=== PATIENT | male | born 1995 | race Caucasian/White ===

== ENCOUNTER 2022-01-10 20:39 | Observation (INO) ==
[2022-01-10] MEDS ORDERED: *HR* Atropine Sulfate 1 MG/10 ML SYRINGE ONE (21:14)
[2022-01-10] MEDS ORDERED: 0.9 % Sodium Chloride 1,000 ML ONE (21:16)
[2022-01-10] MEDS ORDERED: *HR* Atropine Sulfate 1 MG/10 ML SYRINGE IV PRN (21:17)
[2022-01-10] MEDS ORDERED: Iopamidol - 370 500 ML MLS IVP ONE (21:23)
[2022-01-10 21:38] LABS: Basophils # 0.1 K/mcL (0.0-0.2); Basophils % 0.6 %; Eosinophils # 0.1 K/mcL (0.0-0.6); Eosinophils % 0.9 %; Hematocrit 42.5 % (37.5-50.1); Immature Granulocytes % 0.2 % (0-4); Lymphocytes # 3.3 K/mcL (0.6-4.6); Lymphocytes % 36.4 %; Mean Corpuscular HGB Conc 32.9 g/dL (31.6-35.5); Mean Corpuscular Hemoglobin 27.9 pg (28.0-33.3); Mean Corpuscular Volume 84.8 fL (83.0-100.0); Mean Platelet Volume 10.7 fL (9.4-12.4); Monocytes # 0.5 K/mcL (0.0-1.3); Monocytes % 5.6 %; Platelet Count 262 K/mcL (140-400); Red Blood Count 5.01 M/mcL (4.19-5.50); Red Cell Distribution Width 12.6 % (11.5-14.5); Segmented Neutrophils % 56.3 %; White Blood Count 8.9 K/mcL (4.3-11.1)
[2022-01-10 21:58] LABS: BUN/Creatinine Ratio 15 (6-26); Blood Urea Nitrogen 13 mg/dL (6-20); Calcium 10.1 mg/dL (8.6-10.3); Carbon Dioxide 27 mEq/L (23-29); Chloride 102 mEq/L (98-107); Glucose 132 mg/dL (70-105); Magnesium 1.9 mg/dL (1.6-2.6); Osmolality,Calculated 288 (280-300); Potassium 3.7 mEq/L (3.5-5.1); Sodium 138 mEq/L (136-145); Troponin I < 0.03 ng/mL (< 0.04)
[2022-01-11] MEDS ORDERED: Naloxone 0.4 MG/ML INJ IVP PRN (00:36)
[2022-01-11] MEDS ORDERED: Ondansetron 4 MG/2 ML VIAL IVP PRN (00:36)
[2022-01-11] MEDS ORDERED: Acetaminophen 325 MG TABLET PO PRN (00:36)
[2022-01-11 00:45] LABS: Amphetamine Screen,Urine Negative ng/mL (Cutoff=1000); Barbiturate Screen,Urine Negative ng/mL (Cutoff=200); Benzodiazepines Screen,Urine Negative ng/mL (Cutoff=200); Cannabinoid Screen,Urine Negative ng/mL (Cutoff = 50); Cocaine Screen,Urine Negative ng/mL (Cutoff= 300); Opiate Screen,Urine Negative ng/mL (Cutoff=300); Phencyclidine Screen,Urine Negative ng/mL (Cutoff=25)
[2022-01-11 15:50] VITALS: BP 120/80; PULSE 100; TEMP 98.1; O2SAT 98
== END 2022-01-11 17:05 | disposition home or self-care (01) ==
LOC: 3BNU 20:39 → EMEROOARM 20:39 → 2ANU 01-11 00:21
PROVIDERS: ADMIT Student in an Organized Health Care Education/Training Program; ATTEND Student in an Organized Health Care Education/Training Program